=== PATIENT | male | born 1950 | race Hispanic/Latino ===

== ENCOUNTER 2021-05-25 12:04 | Observation (INO) | payer MEDICARE ==
--- NOTE | 2021-05-25 14:06 | XRay Report ---
CHEST 1 VIEW 05/25/2021 1:51 PM INDICATION / CLINICAL INFORMATION: Syncope. COMPARISON: None available. FINDINGS: SUPPORT DEVICES: None. HEART / MEDIASTINUM: No significant abnormality. LUNGS / PLEURA: No significant pulmonary or pleural abnormality. No pneumothorax. ADDITIONAL FINDINGS: No significant additional findings. IMPRESSION: 1. No acute findings. Signer Name: Demetrius Leal MD Signed: 05/25/2021 2:01 PM Workstation Name: [email or web address]
[2021-05-25 14:50] LABS: Alanine Aminotransferase 22 units/L (7-56); Albumin 4.3 g/dL (3.9-5); BUN/Creatinine Ratio 19; Blood Urea Nitrogen 21 mg/dL (9-20); Calcium 9.1 mg/dL (8.4-10.2); Hemolysis Index 11
[2021-05-25 14:54] LABS: Basophils % (Auto) 0.3 % (0.0-1.8); Eosinophils # (Auto) 0.1 K/mm3 (0.0-0.4); Eosinophils % (Auto) 1.5 % (0.0-4.3); Hematocrit 47.6 % (35.5-45.6); Hemoglobin 16.5 gm/dl (11.8-15.2); Lymphocytes # (Auto) 0.9 K/mm3 (1.2-5.4); Lymphocytes % (Auto) 12.6 % (13.4-35.0); Mean Corpuscular HGB Conc 35 % (32-34); Mean Corpuscular Volume 91 fl (84-94); Monocytes # (Auto) 0.6 K/mm3 (0.0-0.8); Monocytes % (Auto) 7.5 % (0.0-7.3); Platelet Count 163 K/mm3 (140-440); Red Blood Count 5.26 M/mm3 (3.65-5.03); Red Cell Distribution Width 14.4 % (13.2-15.2)
--- NOTE | 2021-05-25 17:36 | Cat Scan Report ---
CT head/brain wo con INDICATION / CLINICAL INFORMATION: 71 years Male; syncope, FALL, DIZZY. TECHNIQUE: Routine CT head without contrast. All CT scans at this location are performed using CT dos e reduction for ALARA by means of automated exposure control. COMPARISON: None. FINDINGS: BRAIN / INTRACRANIAL CONTENTS: No acute hemorrhage, mass effect, midline shift, hydrocephalus, or acu te, large territorial infarct. No signs of significant atrophy or chronic infarct. No significant whi te matter abnormality seen. CRANIOCERVICAL JUNCTION: No significant abnormality. ORBITS: No significant abnormality of visualized orbits. SINUSES / MASTOIDS: Prior sinus surgery suggested. Mild mucosal thickening in the ethmoids. ADDITIONAL FINDINGS: None. IMPRESSION: 1. No focal mass, hemorrhage, hydrocephalus, or acute, large territorial infarct. Signer Name: Rodolfo Sanchez MD, III Signed: 05/25/2021 5:32 PM Workstation Name: [id number]
--- NOTE | 2021-05-25 18:11 | Emergency Department Report ---
ED General Adult HPI - General Chief complaint: Syncope Stated complaint: I hurt my right hand, and then I passed out PUI?: No Time Seen by Provider: 05/25/21 17:55 Source: patient, family, EMS ( EMS documentation not available at time of chart dictation ), RN notes reviewed Mode of arrival: Stretcher Limitations: No Limitations - History of Present Illness Initial comments: Cardiology: [facility] [place]. Patient is a 71-year-old gentleman. He is right-hand dominant. His past medical history includes hypertension, high cholesterol, heart disease, currently on aspirin and Plavix. He presents to the ER with 2 complaints. His first complaint is accidental crush injury and right lateral superior hand laceration, sustained earlier on today. The patient was fixing a car, and reports that his hand got stuck between a tire, and edge of the car. He went to an urgent care center, where he states his wound was thoroughly irrigated, cleansed, and subsequently had a laceration repair. He reports that while at the urgent care center, after the completion of the laceration repair, he began to feel dizzy, lightheaded, and passed out. The patient reports multiple recent travel over the past few months. He reports being in a car for quite some time. He has a mild headache. There is no midline neck pain. There is no chest pain. There is no shortness of breath. There is no vomiting or diaphoresis. There is no hematemesis of bright red blood per rectum. The patient reports he is received his Covid vaccination. There is no leg pain or leg swelling. The patient does not believe he has had any changes in his current medications. He believes his current medications are Plavix, aspirin, carvedilol, a torvastatin. The patient has mild sharp throbbing right-sided hand pain. The pain does not radiate anywhere. It increases with palpation. It decreases with rest. -: Sudden Location: right, upper extremity Severity scale (0 -10): 6 Consistency: constant, now resolved Improves with: rest Worsens with: movement - Related Data Allergies Allergy/AdvReac Type Severity Reaction Status Date / Time tetracycline AdvReac Nausea Verified 05/25/21 12:09 ED Review of Systems ROS: Stated complaint: SYNCOPE Other details as noted in HPI Constitutional: denies: fever Eyes: denies: eye discharge ENT: denies: epistaxis Respiratory: denies: cough Cardiovascular: syncope, other (Lightheadedness). denies: chest pain Gastrointestinal: denies: abdominal pain, vomiting, hematemesis, melena, hematochezia Genitourinary: denies: dysuria Musculoskeletal: joint swelling, arthralgia, myalgia Skin: change in color Neurological: weakness. denies: numbness, paresthesias Hematological/Lymphatic: denies: easy bleeding ED Physical Exam - General Limitations: No Limitations, Other (The patient has a chronic tremor which has been present since he was 14) General appearance: alert, in no apparent distress - Head Head exam: Present: atraumatic, normocephalic - Eye Eye exam: Present: normal appearance, PERRL, EOMI. Absent: nystagmus - ENT ENT exam: Present: normal exam, normal orophraynx, mucous membranes moist, normal external ear exam - Neck Neck exam: Present: normal inspection, full ROM. Absent: tenderness, meningismus - Respiratory Respiratory exam: Present: normal lung sounds bilaterally. Absent: respiratory distress, wheezes, rales, rhonchi, stridor, decreased breath sounds - Cardiovascular Cardiovascular Exam: Present: regular rate, normal rhythm, normal heart sounds. Absent: bradycardia, tachycardia, irregular rhythm, systolic murmur, diastolic murmur, rubs, gallop - GI/Abdominal GI/Abdominal exam: Present: soft. Absent: distended, tenderness, guarding, rebound, rigid, pulsatile mass - Rectal Rectal exam: Present: deferred - Extremities Exam Extremities exam: Present: full ROM (Thumb range of motion, lumbricals, finger flexors, extensors are intact.), tenderness (On the dorsal lateral aspect of the right hand, interrupted sutures are noted. There is a dorsal lateral ecchymosis noted.), normal capillary refill, other (2+ pulses noted in the bilateral upper and lower extremities. There is no palpable cord. negative Homans sign. Muscular compartments are soft. The pelvis is stable.). Absent: pedal edema, calf tenderness - Back Exam Back exam: Present: normal inspection. Absent: tenderness, CVA tenderness (R), CVA tenderness (L), paraspinal tenderness, vertebral tenderness - Neurological Exam Neurological exam: Present: alert, oriented X3, other (No facial droop. Tongue midline. Extraocular movements intact bilaterally. Facial sensation intact to light touch in V1, V2, V3 distribution bilaterally. 5 and a 5 strength in 4 ext remities. Sensation intact to light touch in 4 extremities.). Absent: motor sensory deficit - Psychiatric Psychiatric exam: Present: anxious - Skin Skin exam: Present: warm, abrasion ED Course Vital Signs 05/25/21 05/25/21 05/25/21 12:05 19:10 19:11 Temperature 98 F Pulse Rate 68 73 Respiratory 16 16 Rate Blood Pressure Blood Pressure 139/89 138/77 [Right] O2 Sat by Pulse 97 Oximetry 05/25/21 05/25/21 05/25/21 23:14 23:16 23:30 Temperature Pulse Rate 67 69 84 Respiratory 17 18 20 Rate Blood Pressure 132/71 Blood Pressure [Right] O2 Sat by Pulse 95 96 96 Oximetry 05/25/21 05/26/21 05/26/21 23:46 00:00 00:17 Temperature Pulse Rate 64 64 64 Respiratory 16 16 18 Rate Blood Pressure 125/71 125/71 Blood Pressure [Right] O2 Sat by Pulse 96 96 96 Oximetry 05/26/21 00:31 Temperature Pulse Rate 62 Respiratory 14 Rate Blood Pressure 120/70 Blood Pressure [Right] O2 Sat by Pulse 97 Oximetry - Reevaluation(s) Reevaluation #1: 05/25/21 18:24 Differential diagnosis, including the not limited to: Crush injury, laceration, orthostasis, vagal event, structural cardiac disease, pulmonary embolism Assessment and plan: 71-year-old gentleman with 2 complaints. Complaint #1, right hand crush injury, with laceration. Laceration repaired at urgent care center. Prehospital documentation is not available for my review. However, the wound appears to be clean, patient states was thoroughly irrigated, range of motion appears to be intact and thumb and digits 2, 3, 4 and 5. He will be given pain medication for his right hand pain. Will obtain x-ray of the hand., Right upper extremity injury perspective, this will be discharged with rest, ice, compression, elevation therapy, and outpatient follow-up. Complaints #2, syncope. I suspect orthostasis versus vagal event. However, given advanced age, multiple cardiovascular risk factors, abnormal EKG, heart score of 5, I find it prudent to admit this patient to the medical service for urgent cardiology consultation, and cardiac monitoring. While he is not currently tachycardic, tachypneic or hypoxic at this time, he reports that he has been driving around quite a bit over the past few days and weeks for vacation. Therefore, D-dimer will be sent to risk stratify for pulmonary embolism. Contacted cardiology on-call, Dr. Fortune, and have discussed the patient's history, physical, laboratory studies, EKG and overall c linical impression. He is in agreement to admit this patient to the medical service with [facility] cardiology to follow in consultation, and make further recommendations. I discussed this plan of care with the patient, who is agreeable to the aforementioned. [facility] physician, Dr. Finch, to admit patient to the medical service. CT scan of the brain was obtained prior to my personal evaluation of this patient. It is unremarkable at this time. X-ray of the chest was also negative for acute findings. 05/26/21 00:53 D-dimer is negative ED Medical Decision Making - Lab Data Result diagrams: 05/25/21 13:56 05/25/21 13:56 Vital Signs 05/25/21 12:05 Temperature 98 F Pulse Rate 68 Blood Pressure 139/89 [Right] Lab Results 05/25/21 05/25/21 Range/Units 13:56 13:56 WBC 7.4 (4.5-11.0) K/mm3 RBC 5.26 H (3.65-5.03) M/mm3 Hgb 16.5 H (11.8-15.2) gm/dl Hct 47.6 H (35.5-45.6) % MCV 91 (84-94) fl MCH 31 (28-32) pg MCHC 35 H (32-34) % RDW 14.4 (13.2-15.2) % Plt Count 163 (140-440) K/mm3 Lymph % (Auto) 12.6 L (13.4-35.0) % [place] % (Auto) 7.5 H (0.0-7.3) % Eos % (Auto) 1.5 (0.0-4.3) % Baso % (Auto) 0.3 (0.0-1.8) % Lymph # (Auto) 0.9 L (1.2-5.4) K/mm3 [place] # (Auto) 0.6 (0.0-0.8) K/mm3 Eos # (Auto) 0.1 (0.0-0.4) K/mm3 Baso # (Auto) 0.0 (0.0-0.1) K/mm3 Seg Neutrophils % 78.1 H (40.0-70.0) % Seg Neutrophils # 5.8 (1.8-7.7) K/mm3 Sodium 140 (137-145) mmol/L Potassium 4.3 (3.6-5.0) mmol/L Chloride 105.5 (98-107) mmol/L Carbon Dioxide 21 L (22-30) mmol/L Anion Gap 18 mmol/L BUN 21 H (9-20) mg/dL Creatinine 1.1 (0.8-1.3) mg/dL Estimated GFR > 60 ml/min BUN/Creatinine Ratio 19 % Glucose 93 (75-100) mg/dL Calcium 9.1 (8.4-10.2) mg/dL Magnesium 2.30 (1.7-2.3) mg/dL Total Bilirubin 0.90 (0.1-1.2) mg/dL AST 28 (5-40) units/L ALT 22 (7-56) units/L Alkaline Phosphatase 69 (35-129) units/L Troponin T < 0.010 (0.00-0.029) ng/mL Total Protein 7.1 (6.3-8.2) g/dL Albumin 4.3 (3.9-5) g/dL Albumin/Globulin Ratio 1.5 % Vital Signs 05/25/21 05/25/21 05/25/21 12:05 19:10 19:11 Temperature 98 F Pulse Rate 68 73 Respiratory 16 16 Rate Blood Pressure 139/89 138/77 [Right] O2 Sat by Pulse 97 Oximetry - EKG Data -: EKG Interpreted by Or EKG shows normal: sinus rhythm Rate: normal - EKG Data When compared to previous EKG there are: previous EKG unavailable 05/25/21 18:26 EKG #1 is interpreted at 12: 39 Sinus rhythm, bradycardia, normal P wave axis, normal axis, low voltage, abnormal EKG, intervals within normal limits, this is not a STEMI. - Radiology Data Radiology results: pending, report reviewed, image reviewed CT head/brain wo con INDICATION / CLINICAL INFORMATION: 71 years Male; syncope, FALL, DIZZY. TECHNIQUE: Routine CT head without contrast. All CT scans at this location are performed using CT dose reduction for ALARA by means of automated exposure control. COMPARISON: None. FINDINGS: BRAIN / INTRACRANIAL CONTENTS: No acute hemorrhage, mass effect, midline shift, hydrocephalus, or acute, large territorial infarct. No signs of significant atrophy or chronic infarct. No significant white matter abnormality seen. CRANIOCERVICAL JUNCTION: No significant abnormality. ORBITS: No significant abnormality of visualized orbits. SINUSES / MASTOIDS: Prior sinus surgery suggested. Mild mucosal thickening in the ethmoids. ADDITIONAL FINDINGS: None. IMPRESSION: 1. No focal mass, hemorrhage, hydrocephalus, or acute, large territorial infarct. Signer Name: Rodolfo Sanchez MD, III Signed: 05/25/2021 4:32 PM Workstation Name: [id number] CHEST 1 VIEW 05/25/2021 1:51 PM INDICATION / CLINICAL INFORMATION: Syncope. COMPARISON: None available. FINDINGS: SUPPORT DEVICES: None. HEART / MEDIASTINUM: No significant abnormality. LUNGS / PLEURA: No significant pulmonary or pleural abnormality. No pneumothorax. ADDITIONAL FINDINGS: No significant additional findings. IMPRESSION: 1. No acute findings. Signer Name: Demetrius Leal MD Signed: 05/25/2021 1:01 PM Workstation Name: [id number] RIGHT HAND 3 VIEW(S) INDICATION / CLINICAL INFORMATION: right hand crush injuryq COMPARISON: None available. FINDINGS: BONES / JOINT(S): No acute fracture or subluxation. Scattered degeneration of the interphalangeal joints. SOFT TISSUES: No significant abnormality. ADDITIONAL FINDINGS: None. Signer Name: Leo Davis DO Signed: 05/25/2021 6:07 PM Workstation Name: [id number] Critical care attestation.: If time is entered above; I have spent that time in minutes in the direct care of this critically ill patient, excluding procedure time. ED Disposition Clinical Impression: Syncope, CAD (coronary artery disease), Laceration of right hand, Crushing injury of right hand Hypertension Qualifiers: Hypertension type: primary hypertension Qualified Code(s): I10 - Essential (primary) hypertension Disposition: OP ADMIT IP TO THIS HOSP Is pt being admited?: Yes Does the pt Need Aspirin: Yes Condition: Good Heart Score - HEART Score History: Slightly suspicious EKG: Non-specific Age: > 65 Risk factors: > 3 risk factors or hx of atherosclerotic disease Troponin: < normal limit HEART Score: 5 - EKG Read Time Time EKG Completed: 12:39 EKG Read Time: 12:39 - Critical Actions Critical Actions: 4-6 pts:12-16.6% risk of adverse cardiac event. Should be admitted
[2021-05-25] MEDS ORDERED: TETANUS,DIPH,PERTUSS(ACELL) VACCINE 0.5 ML SYRINGE IM ONE (18:14)
[2021-05-25] MEDS ORDERED: LACTATED RINGERS 500 ML IV ONE (18:14)
[2021-05-25] MEDS ORDERED: ACETAMINOPHEN 325 MG TAB PO PRN (18:19)
[2021-05-25] MEDS ORDERED: ONDANSETRON 4 MG/2 ML INJ IV PRN (18:19)
[2021-05-25] MEDS ORDERED: oxyCODONE /ACETAMINOPHEN 5-325MG TAB PO PRN (18:19)
[2021-05-25] MEDS ORDERED: ALBUTEROL 2.5 MG/3 ML NEBU IH PRN (18:19)
[2021-05-25] MEDS ORDERED: HYDROmorphone 1 MG/1 ML INJ IV PRN (18:19)
--- NOTE | 2021-05-25 18:19 | History and Physical Report ---
History of Present Illness Chief complaint: I passed out History of present illness: 71 YO Male with HTN, HLD, Cardiomyopathy, CAD currently on DAPT presents to ED for evaluation. Patient states that he was in his usual state of health after presenting to urgent care after sustaining an injury to his hand. Patient s tates that he experienced a syncopal episode while undergoing a hand laceration repair. EMS was notified and upon arrival the patient was found to be in distress and subsequently transported to [facility] for further care and evaluation of the aforementioned symptoms. The patient was seen and evaluated in the emergency department. All lab and imaging studies reviewed. Patient found to have cardiogenic syncope. Patient placed in observation status and admitted to telemetry. Cardiology team consulted in ED. Patient denies fever, chills, chest pain, palpitation, productive cough, skin rash, recent ill contacts, known exposure to COVID-19. Echocardiogram ordered and is pending at time of admiss ion. No prior admission for review. All medication listed at time of admission has been reconciled. Advanced care planning conducted in ED. Past History Past Medical History: CAD, hypertension, hyperlipidemia, other (See HPI) Past Surgical History: No surgical history, Other (Reviewed) Social history: . denies: smoking, alcohol abuse, prescription drug abuse Family history: CAD, hypertension Medications and Allergies Allergies Allergy/AdvReac Type Severity Reaction Status Date / Time tetracycline AdvReac Nausea Verified 05/25/21 12:09 Active Meds: Active Medications Lactated Ringer's (Lactated Ringers) 500 mls @ 999 mls/hr IV BOLUS ONE Stop: 05/25/21 18:44 Review of Systems Constitutional: no weight loss, no weight gain, no fever, no sweats Ears, nose, mouth and throat: no ear pain, no ear discharge, no nose pain, no nasal congestion Cardiovascular: syncope, no chest pain, no orthopnea, no palpitations Respiratory: no cough, no cough with sputum, no excessive sputum Gastrointestinal: no abdominal pain, no vomiting, no constipation, no change in bowel habits Genitourinary Male: no hematuria, no flank pain, no discharge, no nocturia, no incontinence Rectal: no pain, no incontinence, no bleeding Musculoskeletal: no neck stiffness, no shooting arm pain Integumentary: no rash, no redness, no sores, no jaundice, no boils Neurological: syncope, no head injury, no paralysis, no parathesias, no numbness, no ataxia, no lack of coordination Psychiatric: no anxiety, no memory loss, no sleep disturbances, no insomnia, no hypersomnia, no change in libido, no disorientation Endocrine: no cold intolerance, no polyphagia, no polydipsia, no polyuria, no nocturia, no excessive sweating Hematologic/Lymphatic: no easy bruising, no easy bleeding, no lymphadenopathy Allergic/Immunologic: no urticaria, no wheezing, no persistent infections, no anaphylaxis Exam - Constitutional Vitals: Temp Pulse Resp BP Pulse Ox 98 F 68 139/89 05/25/21 12:05 05/25/21 12:05 05/25/21 12:05 General appearance: Present: mild distress - EENT Eyes: Present: PERRL ENT: hearing intact, clear oral mucosa - Neck Neck: Present: supple, normal ROM - Respiratory Respiratory effort: normal Respiratory: bilateral: CTA - Cardiovascular Heart Sounds: Present: S1 & S2. Absent: rub, click - Extremities Extremities: pulses symmetrical, No edema Peripheral Pulses: within normal limits - Abdominal General gastrointestinal: Present: soft, non-tender, non-distended, normal bowel sounds Male genitourinary: Present: normal - Integumentary Integumentary: Present: clear, warm, dry - Musculoskeletal Musculoskeletal: gait normal, strength equal bilaterally - Psychiatric Psychiatric: appropriate mood/affect, intact judgment & insight - Neurologic Neurologic: CNII-XII intact, moves all extremities HEART Score - HEART Score EKG: Non-specific Age: > 65 Risk factors: > 3 risk factors or hx of atherosclerotic disease Troponin: Troponin T < 0.010 ng/mL (0.00-0.029) 05/25/21 13:56 Troponin: < normal limit - Critical Actions Critical Actions: 4-6 pts:12-16.6% risk of adverse cardiac event. Should be admitted Results - Labs CBC & Chem 7: 05/25/21 13:56 05/25/21 13:56 Labs: Abnormal lab results 05/25/21 05/25/21 Range/Units 13:56 13:56 RBC 5.26 H (3.65-5.03) M/mm3 Hgb 16.5 H (11.8-15.2) gm/dl Hct 47.6 H (35.5-45.6) % MCHC 35 H (32-34) % Lymph % (Auto) 12.6 L (13.4-35.0) % [place] % (Auto) 7.5 H (0.0-7.3) % Lymph # (Auto) 0.9 L (1.2-5.4) K/mm3 Seg Neutrophils % 78.1 H (40.0-70.0) % Carbon Dioxide 21 L (22-30) mmol/L BUN 21 H (9-20) mg/dL Assessment and Plan - Patient Problems (1) Syncope, cardiogenic Status: Acute Plan to address problem: Cardiology team consulted in ED, echocardiogram, remote telemetry monitoring. (2) Hypertension Status: Acute Qualifiers: Hypertension type: primary hypertension Qualified Code(s): I10 - Essential (primary) hypertension Plan to address problem: Monitor blood pressure every shift, continue medical management (3) Hyperlipidemia Status: Acute Qualifiers: Hyperlipidemia type: mixed hyperlipidemia Qualified Code(s): E78.2 - Mixed hyperlipidemia Plan to address problem: Low-cholesterol diet, continue current care, (4) Coronary artery disease Status: Acute Plan to address problem: Continue dual antiplatelet therapy, supportive care. (5) DVT prophylaxis Status: Acute Plan to address problem: SCD to bilateral lower extremities while in bed, patient is ambulatory (6) Advance care planning Status: Acute Plan to address problem: Disease education conducted, care plan discussed, diagnosis discussed, prognosis discussed, patient knowledges understanding and agreement with care plan, +30 minutes.
[2021-05-25] MEDS ORDERED: ACETAMINOPHEN 325 MG TAB PO STA (18:28)
[2021-05-25] MEDS ORDERED: ASPIRIN 81 MG TAB CHEW PO ONE (18:28)
[2021-05-25] MEDS ORDERED: SODIUM CHLORIDE 0.9% 1000 ML 1,000 ML IV SCH (18:30)
--- NOTE | 2021-05-25 19:11 | XRay Report ---
RIGHT HAND 3 VIEW(S) INDICATION / CLINICAL INFORMATION: right hand crush injuryq COMPARISON: None available. FINDINGS: BONES / JOINT(S): No acute fracture or subluxation. Scattered degeneration of the interphalangeal shauna nts. SOFT TISSUES: No significant abnormality. ADDITIONAL FINDINGS: None. Signer Name: Leo Davis DO Signed: 05/25/2021 7:07 PM Workstation Name: [id number]
[2021-05-25 19:51] LABS: INR 1.02 (0.87-1.13)
[2021-05-26 05:15] LABS: BUN/Creatinine Ratio 15; Blood Urea Nitrogen 17 mg/dL (9-20); Calcium 8.7 mg/dL (8.4-10.2); Hemolysis Index 6
--- NOTE | 2021-05-26 10:26 | Electrocardiograph Report ---
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
--- NOTE | 2021-05-26 10:54 | Consultation ---
History of Present Illness Consult date: 05/26/21 Consult reason: syncope History of present illness: The patient is a 71-year-old man who was brought to the emergency room for critical access hospital er evaluation of syncope. Syncope occurred while he was having sutures at an urgent care center for a right hand cut injury. Patient states that at the conclusion of the procedure, he sat up on the stretcher, immediately began feeling nausea, lightheaded, diaphoretic with a "sense of doom" that eventually resulted in a brief syncope. There was no chest pain, no palpitations, no shortness of breath and no seizure activity. In the emergency room, his ECG was sinus with no ST or T wave abnormalities. Laboratory exam was unremarkable including a negative troponin level. Chest x-ray revealed normal size cardiac silhouette and clear lungs. This morning, the patient looks and feels well, alert and oriented x3, no cardiac complaints. He has a cardiac history of coronary artery disease and underwent coronary stent placement to the mid LAD a year ago. 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 His left ventricular ejection fraction has been well documented at normal 55 to 60%. Past History Past Medical History: CAD, hypertension, hyperlipidemia Past Surgical History: No surgical history, PTCA Social history: . denies: smoking, alcohol abuse, prescription drug ab use Family history: CAD, hypertension Medications and Allergies Allergies Allergy/AdvReac Type Severity Reaction Status Date / Time tetracycline AdvReac Nausea Verified 05/25/21 12:09 Active Meds: Active Medications Acetaminophen (Acetaminophen 325 Mg Tab) 650 mg PO Q4H PRN PRN Reason: Pain MILD(1-3)/Fever >100.5/EDWARDS Albuterol (Albuterol 2.5 Mg/3 Ml Nebu) 2.5 mg IH Q4HRT PRN PRN Reason: Shortness Of Breath Hydromorphone HCl (Hydromorphone 1 Mg/1 Ml Inj) 0.25 mg IV Q12H PRN PRN Reason: Pain, Moderate (4-6) Sodium Chloride (Nacl 0.9% 1000 Ml) 1,000 mls @ 42 mls/hr IV DIRECT GABRIELLE Ondansetron HCl (Ondansetron 4 Mg/2 Ml Inj) 4 mg IV Q8H PRN PRN Reason: Nausea And Vomiting Last Admin: 05/25/21 19:07 Dose: 4 mg Documented by: Oxycodone/Acetaminophen (Oxycodone /Acetaminophen 5-325mg Tab) 1 tab PO Q12H PRN PRN Reason: Pain, Moderate (4-6) Sodium Chloride (Sodium Chloride 0.9% 10 Ml Flush Syringe) 10 ml IV BID GABRIELLE Sodium Chloride (Sodium Chloride 0.9% 10 Ml Flush Syringe) 10 ml IV PRN PRN PRN Reason: LINE FLUSH Review of Systems Cardiovascular: syncope, no chest pain, no orthopnea, no palpitations, no rapid/irregular heart beat, no edema, no lightheadedness, no shortness of breath Physical Examination Vital Signs Temp Pulse BP 98 F 68 139/89 05/25/21 12:05 05/25/21 12:05 05/25/21 12:05 General appearance: no acute distress HEENT: Positive: PERRL Cardiac: Positive: Reg Rate and Rhythm Lungs: Positive: clear to auscultation Neuro: Positive: Grossly Intact Abdomen: Positive: Soft Male genitourinary: Positive: deferred Skin: Positive: Clear Extremities: Absent: edema Results 05/25/21 13:56 05/26/21 04:29 Cardiac Enzymes 05/25/21 Range/Units 13:56 AST 28 (5-40) units/L Coagulation 05/25/21 Range/Units 18:37 PT 14.0 (12.2-14.9) Sec. INR 1.02 (0.87-1.13) CBC 05/25/21 Range/Units 13:56 WBC 7.4 (4.5-11.0) K/mm3 RBC 5.26 H (3.65-5.03) M/mm3 Hgb 16.5 H (11.8-15.2) gm/dl Hct 47.6 H (35.5-45.6) % Plt Count 163 (140-440) K/mm3 Lymph # (Auto) 0.9 L (1.2-5.4) K/mm3 [place] # (Auto) 0.6 (0.0-0.8) K/mm3 Eos # (Auto) 0.1 (0.0-0.4) K/mm3 Baso # (Auto) 0.0 (0.0-0.1) K/mm3 Comprehensive Metabolic Panel 05/25/21 05/26/21 Range/Units 13:56 04:29 Sodium 140 139 (137-145) mmol/L Potassium 4.3 3.8 (3.6-5.0) mmol/L Chloride 105.5 106.0 (98-107) mmol/L Carbon Dioxide 21 L 24 (22-30) mmol/L BUN 21 H 17 (9-20) mg/dL Creatinine 1.1 1.1 (0.8-1.3) mg/dL Glucose 93 91 (75-100) mg/dL Calcium 9.1 8.7 (8.4-10.2) mg/dL AST 28 (5-40) units/L ALT 22 (7-56) units/L Alkaline Phosphatase 69 (35-129) units/L Total Protein 7.1 (6.3-8.2) g/dL Albumin 4.3 (3.9-5) g/dL EKG interpretations - Telemetry EKG Rhythm: Sinus Rhythm Assessment and Plan - Patient Problems (1) Vasovagal syncope Current Visit: Yes Status: Acute Plan to address problem: Patient's presentation appears consistent with vasovagal syncope. He now looks and feels well, and cardiac work-up is negative. He is stable for cardiac discharge. 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 Further follow-up of his coronary artery disease will be done in the outpatient setting.
[2021-05-26] MEDS ORDERED: CLOPIDOGREL 75 MG TAB PO SCH (11:00)
[2021-05-26] MEDS ORDERED: ASPIRIN EC 81 MG TAB PO SCH (11:00)
--- NOTE | 2021-05-26 12:42 | Discharge Summary ---
Providers - Providers Date of Admission: 05/25/21 18:19 Date of discharge: 05/26/21 Attending physician: STELLA KOHLI MD 05/25/21 18:15 Consult to Physician [CONS] Urgent Comment: Consulting Provider: DAR CASON Physician Instructions: Reason For Exam: cad syncope Primary care physician: [employer] Hospitalization Condition: Fair Hospital course: HPI: 71 YO Male with HTN, HLD, Cardiomyopathy, CAD currently on DAPT presents to ED for evaluation. Patient states that he was in his usual state of health after presenting to urgent care after sustaining an injury to his hand. Patient states that he experienced a syncopal episode while undergoing a hand laceration repair. EMS was notified and upon arrival the patient was found to be in distress and subsequently transported to [facility] for further care and evaluation of the aforementioned symptoms. The patient was seen and evaluated in the emergency department. All lab and imaging studies reviewed. Patient found to have cardiogenic syncope. Patient placed in observation status and admitted to telemetry. Cardiology team consulted in ED. Patient denies fever, chills, chest pain, palpitation, productive cough, skin rash, recent ill contacts, known exposure to COVID-19. Echocardiogram ordered and is pending at time of admission. No prior admission for review. All medication listed at time of admission has been reconciled. Advanced care planning conducted in ED. Hospital Course: Khang Saab was admitted for syncope. Etiology was suspected to be cardiogenic versus vasovagal. Patient's outpatient acute care physical therapist was consulted. Patient has a history of coronary artery disease and underwent coronary angiography with stent placement several years ago. He has been compliant on DOAC and Plavix and has been continuing follow-up with acute care physical therapist. Per cardiology echo has been well documented outpatient and he has had a ejection fraction of 55 to 60%. By the end of his hospital stay here patient was asymptomatic and had no acute complaints. Etiology was determined to be vasovagal syncope. He will be discharged home today. Patient was encouraged to follow-up with his primary care doctor and his outpatient acute care physical therapist. Disposition: TO HOME OR SELFCARE Final Discharge Diagnosis (Prints w/discharge instructions): Vasovagal syncope Time spent for discharge: 25 - Discharge Diagnoses (1) CAD (coronary artery disease) Status: Acute (2) Crushing injury of right hand Status: Acute (3) Hyperlipidemia Status: Acute Qualifiers: Hyperlipidemia type: mixed hyperlipidemia Qualified Code(s): E78.2 - Mixed hyperlipidemia (4) Hypertension Status: Acute (5) Laceration of right hand Status: Acute (6) Vasovagal syncope Status: Acute Core Measure Documentation - Palliative Care Palliative Care/ Comfort Measures: Not Applicable - Core Measures Any of the following diagnoses?: none Exam - Physical Exam Narrative exam: General appearance: no acute distress HEENT: Positive: PERRL Cardiac: Positive: Reg Rate and Rhythm Lungs: Positive: clear to auscultation Neuro: Positive: Grossly Intact Abdomen: Positive: Soft Male genitourinary: Positive: deferred Skin: Positive: Clear Extremities: Absent: edema - Constitutional Vitals: Temp Pulse Resp BP Pulse Ox 98 F 73 22 117/70 97 05/25/21 12:05 05/26/21 07:01 05/26/21 07:01 05/26/21 07:01 05/26/21 07:01 Plan Activity: no restrictions Weight Bearing Status: Weight Bear as Tolerated Diet: low fat, low cholesterol Follow up with: ASAD ANN MD [Primary Care Provider] - 7 Days DAR CASON MD [Staff Physician] - 7 Days
[2021-05-26 14:30] VITALS: BP 116/71
== END 2021-05-26 15:20 | disposition home or self-care (01) ==
LOC: ED 12:04 → 4A 18:19
PROVIDERS: ADMIT Internal Medicine; ATTEND Internal Medicine
DX: R55 Syncope and collapse (principal); I10 Essential (primary) hypertension; I25.10 Atherosclerotic heart disease of native coronary artery without angina pectoris; E78.2 Mixed hyperlipidemia; S61.411A Laceration without foreign body of right hand, initial encounter; W23.1XXA Caught, crushed, jammed, or pinched between stationary objects, initial encounter; Y93.89 Activity, other specified; Y92.89 Other specified places as the place of occurrence of the external cause; Y99.8 Other external cause status
CPT/HCPCS: 36415; 70450; 71045; 73130; 80048; 80053; 82550; 83735; 83880; 84443; 84484; 85025; 85379; 85610; 93005; 96374; 99285; G0378; J2405; J7120